=== PATIENT | male | born 1960 | race Caucasian/White ===

== ENCOUNTER → 2023-09-22 13:37 | Outpatient (REF) | payer OTHER, SELFPAY | LOC: DHCBC MAIN 13:37 | PROVIDERS: ATTENDING PHYSICIAN Internal Medicine; FAMILY PHYSICIAN Nurse Practitioner Primary Care | DX: I35.1 Nonrheumatic aortic (valve) insufficiency (principal); I10 Essential (primary) hypertension; I77.810 Thoracic aortic ectasia | CPT/HCPCS: 93306 ==

== ENCOUNTER 2024-07-24 00:30 | Observation (INO) | payer OTHER, SELFPAY ==
[2024-07-23] VITALS (7 sets, daily range): BP systolic 103–133; BP diastolic 78–94; BMI 25.4
[2024-07-23 21:14] LABS: % Basophils 0.2 % (0-2); % Eosinophils 1.6 % (0-6); % Immature Granulocytes 0.3 % (0-0.5); % Lymphocytes 3.5 % (20.5-51.1); % Monocytes 3.8 % (1.7-9.3); % Neutrophils 90.6 % (42.2-75.2); Absolute Eosinophils 0.2 10^3/uL (0-0.7); Absolute Lymphocytes 0.4 10^3/uL (1.2-3.4); Absolute Monocytes 0.5 10^3/uL (0.1-0.6); Absolute Neutrophils 11.2 10^3/uL (1.4-6.5); Hematocrit 47.4 % (39.0-52.0); Hemoglobin 16.2 g/dL (13.0-18.0); Mean Corp Hgb Conc. 34.2 g/dL (33.0-37.0); Mean Corpuscular Hgb 31.3 pg (27.0-31.0); Mean Corpuscular Volume 91.5 fL (80.0-94.0); Nucleated Red Blood Cells % 0 % (-); Platelet Count 263 10^3/uL (130-400); Red Blood Cell Count 5.18 10^6/uL (4.70-6.10); Red Cell Dist. Width 12.4 % (11.5-14.5); White Blood Cell Count 12.4 10^3/uL (4.8-10.8)
[2024-07-23 21:21] LABS: ALT (SGPT) 24 U/L (0-50); AST (SGOT) 24 U/L (17-59); Albumin 4.9 g/dl (3.5-5.0); Alkaline Phosphatase 78 U/L (38-126); Blood Urea Nitrogen 28 mg/dl (9-20); Calcium 9.6 mg/dl (8.4-10.2); Carbon Dioxide 31 mmol/L (22-30); Chloride 102 mmol/L (98-107); Glucose 132 mg/dl (70-99); Potassium 4.9 mmol/L (3.5-5.1); Sodium 141 mmol/L (135-145); Total Bilirubin 1.4 mg/dl (0.2-1.3); Total Protein 7.4 g/dl (6.3-8.2); eGFR > 60.00
[2024-07-23 21:22] LABS: Glucose - Point of Care 127 mg/dl (70-99)
--- NOTE | 2024-07-23 21:28 | ED.GENMED ---
History of Present Illness
General
Chief Complaint: Fainting/Passed Out
Source: patient and spouse
Exam Limitations: none
Time Seen by Provider: 07/23/24 21:23
Nursing documentation reviewed up to this point in time: agreed with
History of Present Illness
History of Present Illness:
Patient presents to ED for evaluation after syncopal episode at home, shortly prior to arrival. Unfortunately, as patient was waiting in the waiting room, sitting in a chair, patient had second syncopal episode in ED. Patient states that while he
was sitting down, he felt lightheaded and felt as though he may pass out. At home, patient had gone into restroom, as he had urge to have a bowel movement. Patient felt lightheaded and passed out, falling onto a tub, hitting the back of his head.
Patient's spouse, who was outside the bathroom, heard noise. When she went inside, patient was inside the bathtub, unconscious, unable to be aroused. Per spouse, patient remained unconscious, while breathing, for approximately 7 minutes until he
woke up. Patient appeared to be groggy upon was aware of where he was and recognized his spouse immediately. Patient immediately had 1 vomiting episode and large bowel movement. Afterwards, he told his that he felt 'much better'. Per
spouse, patient had syncopal episode requiring hospitalization 2 years ago, during which time an evaluation did not reveal obvious etiology behind symptoms. It was attributed to potential vagal episode. Denies recent illness. No recent change in
medications or diet. At the time evaluation ED, patient is complaining of pain in the back of his head, where he made contact with the tub.
Past History
Past History
ED Past Medical History: Other (Head trauma)
ED Past Surgical History: Negative Cardiac
Social History
Tobacco: Non-smoker
Alcohol: Occasional
Drug: None
Personal:
Living: with family
Employment: Employed
Family History
Family History: Other (Noncontributory)
Review of Systems
Review of Systems
Allergies reviewed?: Yes
All Other Systems: ROS reviewed and negative except as documented in HPI and ROS
Constitutional: Reports no symptoms
EENT: Reports no symptoms
Respiratory: Reports no symptoms
Cardiac: Reports syncope
ABD/GI: Reports nausea, vomiting and diarrhea
Musculoskeletal: Reports no symptoms
Skin: Reports no symptoms
Neurological: Reports dizzy
Phy Exam
Physical Exam
Physical Exam:
Physical Exam
General: mild distress, not acutely ill. afebrile. pale appearing
Head: nc/at. eomi
Neck: supple. normal range of motion.
Heart: s1/s2 regular rate and rhythm, no murmur. equal radial pulses.
Lungs: no acute respiratory distress. clear bilaterally
Abdomen: normal bowel sounds. not tender.
Neuro: alert and oriented x 3. no focal neurological deficits
Skin: no rash
Psychiatric: well kept. interactive and cooperative
Extremities: no edema. no calf tenderness.
Course
Orders/Labs/Results
Orders:
Orders
07/23/24 20:45
EKG [Electrocardiogram (*1)] Urgent
Reason for Study: Syncope
07/23/24 20:46
EKG- Treatment ONCE
07/23/24 20:59
Comprehensive Metabolic Panel Urgent
07/23/24 21:00
Complete Blood Count/With Diff Urgent
Troponin I Urgent
07/23/24 21:18
Ondansetron Injectable [Zofran] 4 mg .ROUTE .STK-MED ONE
07/23/24 21:24
[address] Cervical Spine W/o Iv Contr Urgent
Comment:
Reason For Exam: trauma
CT Head W/o Iv Contrast Urgent
Comment:
Reason For Exam: posterior head trauma
Norovirus by PCR Urgent
VERENICE Source: Feces/Stool
Specimen Description:
Stool Culture Urgent
VERENICE Source: Feces/Stool
Specimen Description:
Ondansetron Injectable [Zofran] 4 mg IV NOW STA
07/23/24 21:28
0.9% Sodium Chloride 1000 ml [Nss] 1,000 ml IV BOLUS
07/23/24 23:00
Flush (0.9% Sodium Chloride) [Flush (Nss)] See Dose Instructions IV PER PROTOCOL
07/23/24 23:15
0.9% Sodium Chloride 1000 ml [Nss] 1,000 ml IV 100 mls/hr
07/24/24 00:04
Admit/Transfer Patient As Directed
Co-Sign Provider:
Level of Care: Observation services
Assign to:: Telemetry
Physician / Group: hospitalist
Diagnosis: syncope
Reason for Telemetry: Syncope
Date to Stop Telemetry: 07/26/24
Time to Stop Telemetry: 11:00
PRN Pain Medication Management As Directed
May give lesser potent ordered pain med per pt: Yes
preference::
Protocol:: Medication orders for pain may be administered in a
manner that supports deferring to patient preference
when the pt is:
- Requesting an ordered lesser potent pain medication.
Least to most potent pain medications are defined
as: acetaminophen < NSAID < tramadol < opioids
(morphine, oxycodone, hydromorphone).
- Requesting a lesser dose of the same medication IF
ORDERED.
- Requesting a less intrusive route of administration
if both routes are prescribed by the provider (PO <
IV).
07/24/24 00:05
Code Status As Directed
Resuscitation Status: Full Code
07/24/24 00:48
Acetaminophen [Tylenol] 650 mg PO Q4HPRN PRN
Docusate W/Senna [Senokot-S] 1 tablet PO BIDPRN PRN
Ondansetron Injectable [Zofran] 4 mg IV Q6HPRN PRN
07/24/24 00:48
Echo 2D MMode Color/Doppler Routine
Reason for Study: syncope
Activity As Directed
Activity Level: With Assistance
Orthostatic Vital Signs As Directed
Orthostatic VS Frequency: Daily
Pneumatic Compression Sleeves As Directed
Type: Knee high
Vital Signs As Directed
Frequency: Per unit guidelines
DX Deep Vein Thrombosis Video Routine
07/24/24 Breakfast
Regular
At Your Request: Full Participation
Does patient need a safe tray?: No
07/24/24 08:00
Hydrochlorothiazide [Oretic] 12.5 mg PO DAILY
Lisinopril [Zestril] 30 mg PO DAILY
07/26/24 11:00
DC Protocol for Telemetry ONCE
Abnormal Lab Results
07/23/24 07/23/24 07/23/24
20:59 21:00 21:21
WBC 12.4 H 10^3/uL
(4.8-10.8)
MCH 31.3 H pg
(27.0-31.0)
Absolute Neuts (auto) 11.2 H 10^3/uL
(1.4-6.5)
Absolute Lymphs (auto) 0.4 L 10^3/uL
(1.2-3.4)
Neutrophils % 90.6 H %
(42.2-75.2)
Lymphocytes % 3.5 L %
(20.5-51.1)
Carbon Dioxide 31 H mmol/L
(22-30)
BUN 28 H mg/dl
(9-20)
Glucose 132 H mg/dl
(70-99)
Total Bilirubin 1.4 H mg/dl
(0.2-1.3)
POC Glucose 127 H mg/dl
(70-99)
07/23/24 21:00
07/23/24 20:59
Vital Signs
Initial and Last Documented VS:
Initial Vital Signs
Temp Pulse Resp BP Pulse Ox
98.2 F 92 18 116/84 99
07/23/24 20:50 07/23/24 20:50 07/23/24 20:50 07/23/24 20:50 07/23/24 20:50
Last Documented Vital Signs
Temp Pulse Resp BP Pulse Ox
98.2 F 98 16 136/95 97
07/23/24 20:50 07/24/24 02:45 07/24/24 02:45 07/24/24 02:00 07/24/24 02:45
MDM/Problems Addressed
MDM/Problems Addressed:
History and exam consistent with likely syncopal episode, vasovagal in nature, especially with ongoing viral illness, as noted with vomiting and diarrhea episode, preceding syncope. However, as patient experienced second syncopal episode in short
span, patient will be admitted for further events or treatment, with consideration for potential arrhythmic event as well, along with continue IV hydration.
*EKG
Interpreted by ED Provider?: Yes
EKG Intrepretation Date: 07/23/24
Heart Rate: 85
Rate: normal
[place]: normal axis
Interval: normal interval
*Critical Care Note
Total Time (30-74mins, 75-104mins- exclusive of procedures): Not Applicable
ED Attending Note
-
Portions of this chart may have been created with voice recognition software.� Occasional wrong word or��sound alike� substitutions may have occurred due to the inherent limitations of voice recognition software.
Discharge Plan
Departure
Patient Disposition: Admit
Date of Disposition: 07/23/24
Time of Disposition: 23:12
Admit to: Telemetry
Presentation/result/management discussed w/ accepting MD/DO: Hospitalist
Discharge Problem:
Syncope, Viral illness
Interventions
Interventions:
*Risk Screen - Suicide Last Done: 07/23/24 20:50
*General Assessment Last Done: 07/23/24 20:50
*Neglect/Abuse Screening Last Done: 07/23/24 20:50
*ED COVID-19 Vaccine History Last Done: 07/23/24 20:50
ED- Cardiac Assessment Last Done: 07/23/24 21:46
ED- Neurological Assessment Last Done: 07/23/24 21:46
[2024-07-23 21:29] LABS: Troponin I < 0.012 ng/ml
[2024-07-23] MEDS: NSS 1000 IV ×2 (21:30→23:35)
[2024-07-23] MEDS: ZOFRAN 4 MG IV (21:44)
--- NOTE | 2024-07-23 23:58 | HPS.HSE ---
Family Physician
-
Family Physician: Austen Luo
Chief Complaint
-
Syncopal episode at home
History of Present Illness
This is a 61-year-old male with a past medical history of hypertension and a dilated aortic root who presents to emergency department with 2 syncopal episodes.
Patient reported being in usual state of health up until today. He felt weak and then had some abdominal bloating. He later on developed a diarrheal episode and nausea. While he was sitting on the commode he felt that he was lightheaded and
essentially passed out. Spouse reported that he passed out for a few minutes being unresponsive but breathing and having a normal pulse. EMS was called and patient declined coming to the hospital but later drove himself to the hospital for
evaluation. While in the waiting room he felt nauseous again and had another syncopal episode. No seizure-like activity noted.
In the emergency department he was afebrile, blood pressure was 130/90 with a pulse of 93. ECG showed normal sinus rhythm and no acute ST or T wave changes. Troponin was negative.
CBC was completely normal. BUN/creatinine and electrolytes were all within normal limits. LFTs were unremarkable.
CT of the head and C-spine shows no acute abnormalities.
Medical History
Past Medical History
Past Medical History: Reports HTN
Past Surgical History: Reports Appendectomy
Social History
Tobacco: Non-smoker
Alcohol: Occasional
Drug: None
Personal:
Living: With Family
Employment: Employed
Family History
Family History: Not pertinent
Allergies / Home Medications
Allergies reflects when Allergies were last updated in [facility].
Home Medications with original date entered in [facility]
Allergy/Medication List:
Allergies
Allergy/AdvReac Type Severity Reaction Status Date / Time
latex Allergy blisters Verified 07/19/21 08:36
Home Medications
hydrochlorothiazide 12.5 mg tablet 12.5 mg PO DAILY 07/23/24
lisinopril 30 mg tablet 30 mg PO DAILY 07/23/24
Review of Systems
-
History Source: Patient
Constitutional: Reports No Symptoms
EENT: Reports No Symptoms
Respiratory: Reports No Symptoms
Cardiac: Reports No Symptoms
Abdomen/GI: Reports Vomiting and Diarrhea
: Reports No Symptoms
Musculoskeletal: Reports No Symptoms
Skin: Reports No Symptoms
Neurological: Reports No Symptoms
Endocrine: Reports No Symptoms
Hematologic/Lymphatic: Reports No Symptoms
Psych: Reports No Symptoms
Physical Exam
Vital Signs
Vital Signs
Temp Pulse Resp BP Pulse Ox
98.2 F 90 15 133/94 96
07/23/24 20:50 07/23/24 23:45 07/23/24 23:45 07/23/24 23:30 07/23/24 23:45
Physical Exam
General: Well Developed, Well Nourished, No Apparent Distress and Comfortable
HEENT: NormoCephalic, Anicteric, Moist mucous membranes and Atraumatic
Respiratory: Clear
Cardiac: S1/S2, Regular Rhythm and Other
Breast: Deferred by me
GI: Soft, Non Tender, Non Distended and Normal Bowel Sounds
Rectal: Deferred by Provider
Genito-urinary: Deferred by me
Musculoskeletal: No Clubbing, No Cyanosis and No Edema
Skin: Warm
Neuro: AO x 3
Hematologic/Lymphatic: No Lymphadenopathy
Psych: Calm
Laboratory Results
-
07/23/24 21:00
07/23/24 20:59
Laboratory Results
Total Bilirubin 1.4 mg/dl (0.2-1.3) H 07/23/24 20:59
AST 24 U/L (17-59) 07/23/24 20:59
ALT 24 U/L (0-50) 07/23/24 20:59
Alkaline Phosphatase 78 U/L (38-126) 07/23/24 20:59
Troponin I < 0.012 ng/ml 07/23/24 21:00
Data Reviewed
-
CT Scan: Report Reviewed by me
Medical Tests (Nuc Med, Echo, EKG etc): Image Personally Visualized and interpreted
Lab Data: Labs Reviewed by me
Old Records: Reviewed
Impression/Plan
-
IMPRESSION:
Patient with syncopal episode in the setting of nausea vomiting and diarrhea likely a vasovagal episode. Past medical history of hypertension and a dilated aortic root but otherwise no significant past medical history. Labs were completely within
normal limits. CT of the head and C-spine showed no acute abnormalities. ECG with a normal sinus rhythm with troponin being normal. He is tracing on the telemetry has been normal sinus rhythm in the emergency department.
PLAN:
Syncopal episode - He is generally healthy w/o personal or family history. Presentation suggests vagal stimulation, less likely orthostatic. Cannot rule out arrythmic entirely.
- admit to tele observation
- tele x 12 - 24 hrs
- check echo in am
- orthostatic vital signs
- s/p 1 L NS in ED, continue IV fluids overnight
- continue hctz and lisinopril unless orthostatic.
DVT PPx - SCDs
Code status - full code
[2024-07-24] VITALS (14 sets, daily range): BP systolic 102–144; BP diastolic 73–99; PULSE 102–112; BMI 25.9
[2024-07-24] MEDS: ORETIC 12.5 MG PO (08:13)
[2024-07-24] MEDS: ZESTRIL 30 MG PO (08:13)
--- NOTE | 2024-07-24 09:59 | W.PN.HOSP.TC ---
Today's Communication/Plan
-
Follow up Echo
Discharge
Assessment / Plan
Assessment / Plan
Gen-AAOx3, NAD
HEENT-NC, AT, anicteric, clear oral mm
Neck-supple
CV-reg, no M, +S1/S2
Lungs-clear B/L
Abd-soft, NT, ND
Ext-no edema
Musculoskeletal-no cyanosis, clubbing
Skin-warm and dry
Neuro-grossly non-focal
Psych-calm, cooperative
Acute norovirus gastroenteritis -continue supportive care. Tolerating diet. Continue IV fluids.
Vasovagal syncope - Due to gastroenteritis, volume depletion, etc.
Echo completed, report pending.
Essential hypertension -stable.
Full code
Dispo - anticipate d/c home today if he remains stable pending Echo report.
33 min spent in discharge process.
Anticipated Discharge: Today
Subjective/Interval History
-
Date of Service: July 24, 2024
Patient seen and examined. Feeling much better. Tolerated breakfast. Denies nausea or vomiting currently. Still had diarrhea this morning.
Objective Data
-
Vital Signs:
Vital Signs
Temp Pulse Resp BP Pulse Ox
99.3 F 101 14 102/73 95
07/24/24 08:21 07/24/24 08:15 07/24/24 06:30 07/24/24 08:14 07/24/24 08:14
Review of Systems
-
History Source: Patient
All other systems: Reviewed and negative
--- NOTE | 2024-07-24 10:03 | W.DS.TRANS ---
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
-
Discharge Instructions:
Discharge Diagnosis/Procedures Norovirus gastroenteritis, syncope
Diet Regular
Activity As tolerated
Driving Restrictions As prior to admission
Bathing Restrictions None
Instructions:
Stand-Alone Forms:
Changes to Home Medications: No
Discharge Medications:
DC Medications w/original date entered in [facility]
hydrochlorothiazide 12.5 mg tablet 12.5 mg PO DAILY 07/23/24
lisinopril 30 mg tablet 30 mg PO DAILY 07/23/24
Home Medication Changes
Pending Results: No
[2024-07-24] MEDS: NSS 1000 IV (11:11)
--- NOTE | 2024-07-24 13:13 | CM ---
Case management introduced self and role. Patient lives at home with . Independent. Works. 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 He verbalized understanding and signed. Copy given to Fredo. No needs.
DISCHARGE PLAN: Discharge to home
== END 2024-07-24 14:07 | disposition home or self-care (01) ==
LOC: ED 00:30
PROVIDERS: ADMITTING PHYSICIAN Internal Medicine; ATTENDING PHYSICIAN Hospitalist; EMERGENCY PHYSICIAN Emergency Medicine; FAMILY PHYSICIAN Internal Medicine
DX: A08.11 Acute gastroenteropathy due to Norwalk agent (principal); R55 Syncope and collapse; R42 Dizziness and giddiness; W18.12XA Fall from or off toilet with subsequent striking against object, initial encounter; Y93.89 Activity, other specified; Y92.002 Bathroom of unspecified non-institutional (private) residence as the place of occurrence of the external cause; R11.2 Nausea with vomiting, unspecified; G44.309 Post-traumatic headache, unspecified, not intractable; R19.7 Diarrhea, unspecified; R53.1 Weakness; R14.0 Abdominal distension (gaseous); I10 Essential (primary) hypertension; M47.812 Spondylosis without myelopathy or radiculopathy, cervical region; Z91.040 Latex allergy status
CPT/HCPCS: 70450; 72125; 80053; 82962; 84484; 85025; 87045; 87046; 87427; 87798; 93005; 93306; G0378

== ENCOUNTER 2024-07-26 12:02 | Inpatient (IN) | payer OTHER, SELFPAY ==
[2024-07-25] VITALS (7 sets, daily range): BP systolic 142–162; BP diastolic 96–104; BMI 23.7; BMI 25.0
[2024-07-25 16:10] LABS: % Basophils 0.2 % (0-2); % Eosinophils 0.9 % (0-6); % Immature Granulocytes 0.3 % (0-0.5); % Lymphocytes 6.1 % (20.5-51.1); % Monocytes 5.6 % (1.7-9.3); % Neutrophils 86.9 % (42.2-75.2); Absolute Eosinophils 0.1 10^3/uL (0-0.7); Absolute Lymphocytes 0.6 10^3/uL (1.2-3.4); Absolute Monocytes 0.5 10^3/uL (0.1-0.6); Absolute Neutrophils 8.4 10^3/uL (1.4-6.5); Hematocrit 44.8 % (39.0-52.0); Hemoglobin 15.5 g/dL (13.0-18.0); Mean Corp Hgb Conc. 34.6 g/dL (33.0-37.0); Mean Corpuscular Hgb 31.5 pg (27.0-31.0); Mean Corpuscular Volume 91.1 fL (80.0-94.0); Mean Platelet Volume 9.1 fL (7.4-10.4); Nucleated Red Blood Cells % 0 % (-); Platelet Count 249 10^3/uL (130-400); Red Blood Cell Count 4.92 10^6/uL (4.70-6.10); Red Cell Dist. Width 12.4 % (11.5-14.5); White Blood Cell Count 9.7 10^3/uL (4.8-10.8)
[2024-07-25 16:26] LABS: ALT (SGPT) 194 U/L (0-50); AST (SGOT) 218 U/L (17-59); Albumin 4.6 g/dl (3.5-5.0); Alkaline Phosphatase 58 U/L (38-126); Blood Urea Nitrogen 28 mg/dl (9-20); Calcium 8.7 mg/dl (8.4-10.2); Carbon Dioxide 28 mmol/L (22-30); Chloride 101 mmol/L (98-107); Glucose 131 mg/dl (70-99); Sodium 138 mmol/L (135-145); Total Protein 7.2 g/dl (6.3-8.2); eGFR > 60.00
[2024-07-25 16:27] LABS: Lipase 27 U/L (23-300)
--- NOTE | 2024-07-25 16:59 | EDRN ---
Pt was seen and diagnosed w/ norovirus 2 days ago. Pt has been unable to eat until today had a bit of food and some gatorade and bowel sounds became hyperactive and pt became very bloated. pt at present states pain is a 3/10 but increases and
decreases up to 10/10 and goes from dull to sharp and crampy. Pt has steady constant hiccups while this RN was in room and looks very uncomfortable.
--- NOTE | 2024-07-25 17:21 | ED.GENMED ---
History of Present Illness
General
Chief Complaint: Abdominal Pain
Source: patient
Exam Limitations: none
Time Seen by Provider: 07/25/24 16:32
Nursing documentation reviewed up to this point in time: agreed with
History of Present Illness
History of Present Illness:
Patient to ED with complaint of abd. pain and distention. States he was admitted here [facility] for norovirus. Discharged home yesterday, continued with liquid diet. Today he tried to eat a sandwhich and since then has not been able to pass any
gas. Abdomen has gotten progressively distended, painful. No with hiccups. Brought to ED by spouse for eval.
Past History
Past History
ED Past Medical History: HTN and Other (Head trauma)
ED Past Surgical History: Negative Cardiac
Social History
Tobacco: Non-smoker
Alcohol: Occasional
Drug: None
Personal:
Living: with family
Employment: Employed
Family History
Family History: Other (Noncontributory)
Review of Systems
Review of Systems
Allergies reviewed?: Yes
All Other Systems: ROS reviewed and negative except as documented in HPI and ROS
Constitutional: Reports no symptoms
EENT: Reports no symptoms
Respiratory: Reports no symptoms
Cardiac: Reports no symptoms
ABD/GI: Reports abdominal pain and other (distention)
: Reports no symptoms
Musculoskeletal: Reports no symptoms
Skin: Reports no symptoms
Neurological: Reports no symptoms
Psychiatric: Reports no symptoms
Phy Exam
General Physical Exam
General Presentation: moderate distress
General age: appears stated age
General Skin: warm and dry
General Habitus: normal
Cardiovascular Exam
Cardiovascular Exam: regular rate/rhythm
Pulmonary Exam
Pulmonary Exam: lungs clear and no respiratory distress
Gastrointestinal Exam
Gastrointestinal Exam: no cva tenderness, abnormal bowel sounds (Hypoactive) and distended
Palpation: generalized: Severe tenderness
Musculoskeletal Exam
Musculoskeletal Exam: full ROM
Skin Exam
Skin Exam: normal color and warm/dry
Psychiatric Exam
Psychiatric Exam: normal mood/affect
Course
Orders/Labs/Results
Orders:
Orders
07/25/24 Breakfast
NPO
Allow oral meds: Yes
Allow clear liquids: Sips of Clears
Comment: no red liquid
07/25/24 15:49
Electrocardiogram (*1) Urgent
Reason for Study: Abdominal Pain
EKG- Treatment ONCE
07/25/24 16:01
Complete Blood Count/With Diff Urgent
Comprehensive Metabolic Panel Urgent
Lipase Urgent
07/25/24 16:32
Obstruct Series W/PA Chest [CR Obstruct Series W/pa Chest] Urgent
Comment:
Reason For Exam: abd. pain
07/25/24 17:40
CT Abd/pelvis W Iv Cont Urgent
Comment:
Reason For Exam: abdominal pain and distention, suspected obstructi
07/25/24 17:41
0.9% Sodium Chloride 1000 ml [Nss] 1,000 ml IV BOLUS
07/25/24 18:06
HYDROmorphone [Dilaudid] 0.5 mg IV NOW STA
Ondansetron Injectable [Zofran] 4 mg IV NOW STA
07/25/24 19:24
HYDROmorphone [Dilaudid] 0.5 mg .ROUTE .STK-MED ONE
HYDROmorphone [Dilaudid] 0.5 mg IV NOW STA
07/25/24 20:45
Admit/Transfer Patient As Directed
Co-Sign Provider:
Level of Care: Observation services
Assign to:: Medical/Surgical
Physician / Group: Gopi
Diagnosis: Ileus, Norovirus
PRN Pain Medication Management As Directed
May give lesser potent ordered pain med per pt: Yes
preference::
Protocol:: Medication orders for pain may be administered in a
manner that supports deferring to patient preference
when the pt is:
- Requesting an ordered lesser potent pain medication.
Least to most potent pain medications are defined
as: acetaminophen < NSAID < tramadol < opioids
(morphine, oxycodone, hydromorphone).
- Requesting a lesser dose of the same medication IF
ORDERED.
- Requesting a less intrusive route of administration
if both routes are prescribed by the provider (PO <
IV).
07/25/24 20:46
Code Status As Directed
Resuscitation Status: Full Code
07/25/24 21:42
Acetaminophen [Tylenol] 650 mg PO Q4HPRN PRN
Baclofen [Lioresal] 5 mg PO TIDPRN PRN
HYDROmorphone [Dilaudid] 0.5 mg IV Q4HPRN PRN
Lactated Ringers [Lr] 1,000 ml IV 100 mls/hr
Ondansetron Injectable [Zofran] 4 mg IV Q6HPRN PRN
07/25/24 21:42
Activity As Directed
Activity Level: Ambulate
Bladder Scan As Directed
Follow Bladder Retention/Intermittent Cath Algorithm?: Yes
PRN if no void in __ hours: 6
Frequency: Per Retention Algorithm
If Bladder Scan Result >: 400
then:: Straight cath
I/O [Intake/ Output] As Directed
Frequency: Per unit guidelines
Pneumatic Compression Sleeves As Directed
Type: Knee high
Precautions As Directed
Type of Precautions: Contact
Straight Cath As Directed
Frequency: Per Retention Algorithm
Additional Instructions: straight cath as needed per acute urinary retention algorithm for 24 hrs
Additional Instructions: for bladder scan greater than 400 mL
Vital Signs As Directed
Frequency: Per unit guidelines
Oxygen Therapy [O2 Therapy] [RESP] Routine
Titrate/Wean O2 to maintain O2 sat greater than (%): 94
DX Deep Vein Thrombosis Video Routine
07/25/24 22:00
Flush (0.9% Sodium Chloride) [Flush (Nss)] See Dose Instructions IV PER PROTOCOL
07/25/24 23:14
Consult Notification Routine
Specialty to Notify: Gastroenterology
Date consulting provider notified: 07/26/24
Time consulting provider notified: 07:48
Notified:: Provider
Comment: TT Dr Stanley
GASTROINTESTINAL CONSULT Routine
Consulting Provider: Priti Montgomery
Was physician already notified: No
Reason for consult: Ileus / Norovirus
07/25/24 23:15
Ot Screening Request from Tasha Routine
Pt Screening Request from Tasha Routine
Speech Screening from Tasha Routine
07/26/24 08:00
0.9% Sodium Chloride [Nss (Preservative Free)] 10 ml IV DAILY
Lisinopril [Zestril] 30 mg PO DAILY
Pantoprazole [Protonix IV] 40 mg IV DAILY
07/26/24 09:00
Bisacodyl [Dulcolax] 10 mg RECTAL Q8
07/26/24 09:53
Basic Metabolic Panel IN AM
Complete Blood Count/No Diff IN AM
Magnesium Routine
Comment: ADD ON
07/26/24 11:00
Hepatitis A Antibody, Total Routine
Hepatitis A IgM Antibody Routine
Hepatitis B Core Ab, IgM Routine
Hepatitis B Core Ab, Total Routine
Hepatitis B Surface Antibody Routine
Hepatitis B Surface Antigen Routine
Hepatitis C Antibody Routine
07/27/24 06:00
Complete Blood Count/No Diff IN AM
Comprehensive Metabolic Panel IN AM
Abdomen Xray - 1 View [CR Abdomen - 1 View] IN AM
Comment:
Reason For Exam: eval bowel loops
Abnormal Lab Results
07/25/24 07/26/24
16:01 09:53
RBC 4.65 L 10^6/uL
(4.70-6.10)
MCH 31.5 H pg 31.4 H pg
(27.0-31.0) (27.0-31.0)
Absolute Neuts (auto) 8.4 H 10^3/uL
(1.4-6.5)
Absolute Lymphs (auto) 0.6 L 10^3/uL
(1.2-3.4)
Neutrophils % 86.9 H %
(42.2-75.2)
Lymphocytes % 6.1 L %
(20.5-51.1)
Potassium 3.0 L mmol/L
(3.5-5.1)
BUN 28 H mg/dl 25 H mg/dl
(9-20) (9-20)
Glucose 131 H mg/dl 100 H mg/dl
(70-99) (70-99)
Magnesium 2.4 H mg/dl
(1.6-2.3)
AST 218 H U/L
(17-59)
ALT 194 H U/L
(0-50)
07/26/24 09:53
07/26/24 09:53
Vital Signs
Initial and Last Documented VS:
Initial Vital Signs
Temp Pulse Resp BP Pulse Ox
98.2 F 85 18 162/96 98
07/25/24 15:39 07/25/24 15:39 07/25/24 15:39 07/25/24 15:39 07/25/24 15:39
Last Documented Vital Signs
Temp Pulse Resp BP Pulse Ox
98.3 F 77 19 122/85 99
07/26/24 15:00 07/26/24 15:00 07/26/24 15:00 07/26/24 15:00 07/26/24 15:00
*Radiology
Radiology exam reviewed: radiology read reviewed
*Pulse Oximetry
Patient hypoxic: no
*Critical Care Note
Total Time (30-74mins, 75-104mins- exclusive of procedures): Not Applicable
Update Note
Update Note:
Patient to ED wt complaint of abd. pain and distention which began this afternoon. Diagnosed with norovirus 2 days ago Has not had any further diarrhea or vomiting. Now with nausea,hiccups, dry heaves. Labs reviewed. LFT elevation noted.
reports he had a viral illness approx 10yrs ago whichalso caused temporary elevation. Xray with suspected obstruction. CT obtained: Ileus, no obstruction. IVF, pain meds administered. Afebrile. No vomiting. Case discussed with dr. jonas.
WIll admit to hospitalist service
ED Attending Note
-
Portions of this chart may have been created with voice recognition software.� Occasional wrong word or��sound alike� substitutions may have occurred due to the inherent limitations of voice recognition software.
Discharge Plan
Departure
Patient Disposition: Admit
Date of Disposition: 07/25/24
Time of Disposition: 19:58
Presentation/result/management discussed w/ accepting MD/DO: Hospitalist
Condition: Fair
Covid-19: Not Applicable
Discharge Problem:
Ileus
Interventions
Interventions:
*Risk Screen - Suicide Last Done: 07/25/24 22:59
*General Assessment Last Done: 07/25/24 16:40
*Neglect/Abuse Screening Last Done: 07/25/24 16:40
ED- Fall Risk Assessment Last Done: 07/25/24 16:40
*ED COVID-19 Vaccine History Last Done: 07/25/24 16:40
*Nursing Disposition Last Done: 07/25/24 21:41
DS-Gcguzm-[id number] Assessment Last Done: 07/25/24 16:40
Discharge Date and Time
Discharge Date/Time: 07/25/24 21:44
--- NOTE | 2024-07-25 17:55 | EDRN ---
18Fr NGT placed through L nostril at this time and placed to intermittent suction.
[2024-07-25] MEDS: NSS 1000 IV (18:08)
[2024-07-25] MEDS: DILAUDID 0.5 MG IV ×2 (18:13→19:28)
[2024-07-25] MEDS: ZOFRAN 4 MG IV (18:14)
--- NOTE | 2024-07-25 18:50 | EDRN ---
Pt at this time states pain remains severe. Pt remains w/ bloated and rigidly firm abd and NGT only draining small amounts of GI content at this time. Chinmay Vaz NP informed.
--- NOTE | 2024-07-25 20:52 | HPS.HSE ---
Family Physician
-
Family Physician: Marcelle Chacon
Chief Complaint
-
Abd Distention, N/V
History of Present Illness
Patient is a 64y M with PMH significant for hypertension who presents to ED complaining of abdominal distention and nausea / vomiting today. Patient was recently hospitalized at for symptoms of Norovirus from 07/23 - 07/24. Patient states
that he was feeling much improved at the time of discharge. He continued to have loose stools throughout the day yesterday. When he awoke this AM, he had no further diarrhea. He had no other bowel movement and began to note rapidly progressive
abdominal distention and discomfort. In the afternoon he had an episode of nausea and non-bloody emesis and he returned to the ED for further evaluation and treatment.
Initial x-rays suggested developing obstruction and an NG tube was placed for decompression.
Follow-up CT scan was more consistent with ileus and NG tube was noted to have minimal output. It was removed in the ED.
At the time of my examination, patient complains of intractable hiccoughs and abdominal distention. He denies any pain. He states that he does not feel nauseated at present.
He has had no BM or flatus since arrival here today.
Medical History
Past Medical History
Past Medical History: Reports Other
Additional Past Medical History:
Hypertension
Past Surgical History: Reports Other
Additional Past Surgical History:
Appendectomy
Social History
Tobacco: Non-smoker
Alcohol: None
Drug: None
Family History
Family History: Not pertinent
Allergies / Home Medications
Allergies reflects when Allergies were last updated in [facility].
Home Medications with original date entered in [facility]
Allergy/Medication List:
Allergies
Allergy/AdvReac Type Severity Reaction Status Date / Time
latex Allergy blisters Verified 07/25/24 15:41
Home Medications
hydrochlorothiazide 12.5 mg tablet 12.5 mg PO DAILY 07/23/24
lisinopril 30 mg tablet 30 mg PO DAILY 07/23/24
Review of Systems
-
History Source: Patient
A 12 point ROS was completed and negative except as noted: Yes
Constitutional: Reports Fatigue; Denies Fever or Chills
Respiratory: Denies Cough or Trouble Breathing
Cardiac: Denies Chest Pain or Palpitations
Abdomen/GI: Reports Abdominal Pain, Nausea and Vomiting; Denies Diarrhea or Constipated
: Denies Dysuria or Frequency
Musculoskeletal: Denies Joint Pain or Edema
Neurological: Denies Dizzy or Headache
Psych: Denies Depression or Anxiety
Physical Exam
Vital Signs
Vital Signs
Temp Pulse Resp BP Pulse Ox
98.2 F 88 18 142/98 96
07/25/24 15:39 07/25/24 20:00 07/25/24 20:00 07/25/24 20:00 07/25/24 20:00
Physical Exam
General: Other (64y M in mild distress due to hiccoughs / abdominal distention.)
HEENT: Moist mucous membranes
Respiratory: Clear; No Wheezes, Rales or Rhonchi
Cardiac: S1/S2 and Regular Rhythm
GI: Other (Softly distended. Not tender. Bowel sounds are appreciated. )
Musculoskeletal: No Clubbing, No Cyanosis and No Edema
Neuro: AO x 3
Laboratory Results
-
07/25/24 16:01
07/25/24 16:01
Laboratory Results
Total Bilirubin 1.0 mg/dl (0.2-1.3) 07/25/24 16:01
AST 218 U/L (17-59) H 07/25/24 16:01
ALT 194 U/L (0-50) H 07/25/24 16:01
Alkaline Phosphatase 58 U/L (38-126) 07/25/24 16:01
Lipase 27 U/L (23-300) 07/25/24 16:01
Impression/Plan
-
A/P: Patient is a 64y M with PMH significant for hypertension and recent admission for Norovirus who returns to the ED complaining of abdominal distention and N/V.
Infectious Ileus
Norovirus Enteritis
- Observe overnight for further evaluation and treatment.
- Supportive care including antiemetics, IVFs, etc.
- Would replace NG for decompression if N/V recurs.
- GI evaluation for additional recommendations.
- Follow proper precautions.
Benign Hypertension
- Stable. Hold HCTZ acutely. Continue lisinopril.
DVT Prophylaxis: SCDs
Code Status: Full
--- NOTE | 2024-07-25 21:06 | PTCARENOTE ---
Patient admitted from the ED. Patient ambulated into the room. Patient AAOx3. Patient is able to state needs. Call hernandez within reach. Patient is NPO with sips of clears allowed. Patient complained of hiccups and was given prn Lioresal. Will
continue with current plan.
[2024-07-25] MEDS: LR 1000 IV (22:29)
[2024-07-25] MEDS: LIORESAL 5 MG PO (23:22)
[2024-07-26 07:00] VITALS: BP 131/88
--- NOTE | 2024-07-26 08:13 | CON.GI ---
Addendum entered and electronically signed by Trevor Stanley DO 07/26/24 10:29:
I saw and examined the patient.
The HEAD BUYER TOBACCO's note was reviewed and I agree with the note.
Comment: Mr. Sánchez is a pleasant 64 y.o male with past medical history of HTN and recent infection with Norovirus and syncope with recent admission at (07/23-07/24/24) who re-presented to the ED on 07/25 with worsening abdominal distension and
nausea/vomiting. Had looser stools on 07/24 but without any BM day prior to admission with worsening distension and subsequent nausea with NBNB emesis prompting him to come back to the ED for further re-evaluation. Otherwise, no other fevers/chills
or other constitutional symptoms. He is not on any other anticholinergics or recent opioids/pain medications. HD-stable in ED with labs revealing normal electrolytes, BUN 28 and Plasma Table Operator 1.0 and LFTs with AST 218 and ALT 194. CBC without leukocytosis.
KUB 07/25/24 revealing dilated bowel loops throughout the abdomen suspicious for developing obstruction where an eventual NGT was placed in the ED. CT Abd/pelvis revealed diffusely dilated colon (with cecal diameter of 9.6 cm) and mildly dilated
distal small bowel loops, without transition points identified. Findings suggest colonic ileus with associated small bowel distention without obstruction.
#Colonic Ileus
Etiology of colonic ileus (acute colonic pseudoobstruction) likely secondary to resolving Norovirus infection. Fortunately, he is improving this AM and wishes to go home since he is feeling better. Reports passing significant flatus with eventual
liquid and semi-solid stool suggestive of return of bowel function secondary to resolving infection and without any further nausea/vomiting.
Recommendations:
- Keep NPO for now. If ongoing bowel function later today, may trial CLD later this evening
- Would continue to monitor for additional 24 hrs given cecal diameter (9.6 cm) as seen on recent CT imaging
- Continue IVF with LR and replete electrolytes as needed to maintain K > 4.0 and Mg > 2.0
- Start dulcolax suppositories as below TiD to further promote bowel function
- Reasonable to defer re-placement of NGT given improving symptoms. Low threshold to replace NGT if recurrent nausea/vomiting
- Obtain KUB tomorrow AM to reassess colonic dilation and cecal diameter
- Avoidance of all opioids and anticholinergics while inpatient
- Monitor serial abdominal exams, encourage frequent ambulation, OOB as tolerated while maintaining contact precautions for Norovirus
- Anti-emetics PRN
#Hepatocellular-induced liver injury
Mild transaminases likely from volume depletion with suspected transient hypotension prior to admission resulting in mild ischemic hepatitis.
- Trend LFTs q daily
- Obtain hepatitis serologies for completion, defer full serologic w/u at this time
- Avoid peroids of hypotension, continue IVF as above
Thank you for allowing me to participate in the care of this patient. GI team will continue to follow while inpatient. Please do not hesitate to call for any further questions.
Addendum entered and electronically signed by GLENDA Jacques 07/26/24 08:42:
-Check Abd Xray in am
Original Note:
Consultation
-
Date/Time Consultation Requested: 07/25/24 4752
Date/Time Consultation Performed: 07/26/24 7263
Requesting Provider: Dr. Nguyễn
Performing Provider: Dr. Stanley/GLENDA Schuzl
Reason for Consultation: norovirus/bowel dilatation
Medical History
Chief Complaint / HPI
Chief Complaint: abd distention
History of Present Illness:
64-year-old male with past medical history of hypertension, norovirus, syncopal episode admitted here Monday for norovirus with syncope he was discharged on 07/24/2024 he presents back to emergency room after trying to advance diet with inability
to pass flatus and significant abdominal distention. The patient continues with nausea and vomiting. Asked to evaluate for the same. At the present time the patient still continues with abdominal distention. He had an obstruction series that
showed no acute cardiopulmonary process. Dilated bowel loops throughout the abdomen suspicious for developing obstruction. CT of abdomen and pelvis with IV contrast was obtained that showed diffusely dilated colon and mildly dilated small bowel
loops, without transition point identified. Findings suggest colonic ileus with associated small bowel distention. No martha obstruction. Dilated air and fluid-filled colon throughout measuring up to 9.6 cm in the cecal region. The patient had an
NG tube placed for decompression as he still had vomiting yesterday. He also had minimal output therefore this was removed in the emergency department. The patient's last episode of vomiting was yesterday. He denies any fevers, chills, melena,
hematochezia, hematemesis, dysphagia or odynophagia. No early satiety or unintentional weight loss. He just started to pass a small amount of flatus just now. He just had his first bowel movement which was some liquid with some pieces of solid
stool. Labs pending from this a.m. admission labs include WBC 9.7, hemoglobin 15.5, hematocrit 44.8, platelets 249, sodium 138, potassium 4.0, chloride 101, CO2 28, BUN 20, creatinine 1.0, glucose 131, calcium 8.7, total bilirubin 1.0, AST 218, ALT
194, alk phos 58, lipase 27, albumin 4.6 stool on 07/24/2024 positive for norovirus. Stool cultures negative.
Past Medical History
Past Medical History: HTN and Other (Dilated aortic root)
Past Surgical History: Appendectomy
Social History
Tobacco: Non-Smoker
Alcohol: Occasional (1-2 beers a week)
Drug: None
Personal:
Living: With Family
Family History
Family History: Other (No family history gastrointestinal malignancy or IBD)
Allergies / Home Medications
Allergy/AdvReac Type Severity Reaction Status Date / Time
latex Allergy blisters Verified 07/25/24 15:41
�Medication �Instructions �Recorded
hydrochlorothiazide 12.5 mg tablet 12.5 mg PO DAILY 07/23/24
lisinopril 30 mg tablet 30 mg PO DAILY 07/23/24
Review of Systems
-
All other systems: A 12 pt ROS was Negative except as stated above in HPI
Vital Signs
Temp Pulse Resp BP Pulse Ox
98.6 F 90 20 154/101 98
07/25/24 21:50 07/25/24 21:50 07/25/24 21:50 07/25/24 23:19 07/25/24 21:50
Physical Exam
Exam
General: No Apparent Distress
HEENT: Anicteric
Respiratory: Clear
Cardiac: Regular Rhythm
GI: Non Tender, Normal Bowel Sounds, Distended and Other (Distended abdomen without any tenderness or rebound)
Skin: Warm and Dry
Neuro: AO x 3
Psych: Calm
Results
WBC 9.7 10^3/uL (4.8-10.8) 07/25/24 16:01
Hgb 15.5 g/dL (13.0-18.0) 07/25/24 16:01
Hct 44.8 % (39.0-52.0) 07/25/24 16:01
MCV 91.1 fL (80.0-94.0) 07/25/24 16:01
Plt Count 249 10^3/uL (130-400) 07/25/24 16:01
Absolute Neuts (auto) 8.4 10^3/uL (1.4-6.5) H 07/25/24 16:01
Sodium 138 mmol/L (135-145) 07/25/24 16:01
Potassium 4.0 mmol/L (3.5-5.1) 07/25/24 16:01
Chloride 101 mmol/L (98-107) 07/25/24 16:01
Carbon Dioxide 28 mmol/L (22-30) 07/25/24 16:01
BUN 28 mg/dl (9-20) H 07/25/24 16:01
Creatinine 1.0 mg/dL (0.7-1.3) 07/25/24 16:01
Calcium 8.7 mg/dl (8.4-10.2) 07/25/24 16:01
Total Bilirubin 1.0 mg/dl (0.2-1.3) 07/25/24 16:01
AST 218 U/L (17-59) H 07/25/24 16:01
ALT 194 U/L (0-50) H 07/25/24 16:01
Alkaline Phosphatase 58 U/L (38-126) 07/25/24 16:01
Lipase 27 U/L (23-300) 07/25/24 16:01
Diagnostic Image Results:
CT abdomen and pelvis with IV contrast only:1. Diffusely dilated colon and mildly dilated distal small bowel loops, without transition points identified. Findings suggest colonic ileus with associated small bowel distention. No martha obstruction.
Dilated air and fluid-filled colon throughout measuring up to 9.6 cm in the cecal region.
Obstruction series 07/25/2024:
1. No acute cardiopulmonary process.
2. Dilated bowel loops throughout the abdomen suspicious for developing obstruction.
Prior GI Procedures:
EGD: Never had
Colonoscopy: 02/06/2019 ([facility]): - One 3 mm polyp in the transverse colon, removed with a
jumbo cold forceps. Resected and retrieved.
- The examined portion of the ileum was normal.
- Otherwise normal to terminal ileum.
Assessment / Plan
-
64-year-old male with past medical history of hypertension, norovirus, syncopal episode admitted here Monday for norovirus with syncope he was discharged on 07/24/2024 he presents back to emergency room after trying to advance diet with inability
to pass flatus and significant abdominal distention. The patient continues with nausea and vomiting. Imaging studies with dilated loops of small bowel and colon dilatation with cecum up to 9.6 cm. Continues with abdominal distention. Starting to
pass minimal flatus.
Impression:
Norovirus
Ileus/colonic dilatation (cecum up to 9.6 cm)
Inability to tolerate oral intake, need for IV fluids to maintain hydration
Elevated transaminases-> likely secondary to shock from syncope prior to first admission
Plan:
-Continue IV fluids to support patient's hydration
-Antiemetics as needed
-Await pending labs
-Dulcolax suppository every 8 x 24 hours to stimulate movement from below
-If with nausea and vomiting would reconsider NG tube. Patient aware
-N.p.o., if with continued passing of flatus and bowel movements would consider sips of clears with advancement.
-Continue pantoprazole 40 mg IV daily
-Patient due for repeat colonoscopy in 2025.
-Further recommendations to be forthcoming.
-
-
Thank you for consultation and allowing me to participate in the patient's care. Please call the application support analyst GI physician during the after hours with any questions or concerns.
[2024-07-26] MEDS: LR 1000 IV ×2 (09:52→23:00)
[2024-07-26] MEDS: PROTONIX IV 40 MG IV (09:53)
[2024-07-26] MEDS: ZESTRIL 30 MG PO (09:53)
[2024-07-26] MEDS: DULCOLAX 10 MG RECTAL ×2 (09:54→17:36)
[2024-07-26] MEDS: NSS (PRESERVATIVE FREE) 10 ML IV (09:54)
[2024-07-26 10:07] LABS: Hemoglobin 14.6 g/dL (13.0-18.0); Mean Corp Hgb Conc. 34.8 g/dL (33.0-37.0); Mean Corpuscular Hgb 31.4 pg (27.0-31.0); Mean Corpuscular Volume 90.3 fL (80.0-94.0); Mean Platelet Volume 9.1 fL (7.4-10.4); Platelet Count 237 10^3/uL (130-400); Red Blood Cell Count 4.65 10^6/uL (4.70-6.10); Red Cell Dist. Width 12.3 % (11.5-14.5); White Blood Cell Count 6.9 10^3/uL (4.8-10.8)
[2024-07-26 10:52] LABS: Blood Urea Nitrogen 25 mg/dl (9-20); Calcium 8.5 mg/dl (8.4-10.2); Carbon Dioxide 28 mmol/L (22-30); Chloride 100 mmol/L (98-107); Estimated Creatinine Clearance 87 ml/min; Glucose 100 mg/dl (70-99); Sodium 139 mmol/L (135-145); eGFR > 60.00
[2024-07-26 13:12] LABS: Hepatitis B Surface Antigen Negative (Negative)
[2024-07-26 13:17] LABS: Hepatitis A IgM Antibody Negative (Negative); Hepatitis B Core Ab, IgM Negative (Negative)
[2024-07-26 13:29] LABS: Hepatitis A Antibody, Total Negative (Negative); Hepatitis B Core Ab, Total Negative (Negative); Hepatitis B Surface Antibody Negative; Hepatitis C Antibody Negative (Negative)
[2024-07-26 13:31] LABS: Magnesium 2.4 mg/dl (1.6-2.3)
--- NOTE | 2024-07-26 13:48 | W.PN.HOSP.TC ---
Today's Communication/Plan
-
Replete potassium
Assessment / Plan
Assessment / Plan
Gen-AAOx3, NAD
HEENT-NC, AT, anicteric, clear oral mm
Neck-supple
CV-reg, no M, +S1/S2
Lungs-clear B/L
Abd-soft, NT, mild distention
Ext-no edema
Musculoskeletal-no cyanosis, clubbing
Skin-warm and dry
Neuro-grossly non-focal
Psych-calm, cooperative
Ileus -due to acute gastroenteritis due to norovirus. Clinically improving, passing gas and stool. No obstruction noted on CT. Currently NPO. Continue IV fluids. Appreciate GI input.
Abdominal x-ray in the morning. Bowel regimen per GI. Minimize opiates.
Plan to start clear liquid diet if he has multiple bowel movements this afternoon.
Hypokalemia -due to GI losses from acute gastroenteritis. Continue repletion. Magnesium 2.4.
Acute gastroenteritis due to norovirus -continue supportive care.
Essential hypertension -stable.
Elevated transaminases -unclear if due to hypotension induced ischemia versus other causes. Blood pressures recorded so far have all been fine if not elevated.
Full code
Anticipated Discharge: Within 24 hours
Subjective/Interval History
-
Date of Service: July 26, 2024
Patient seen and examined. Feeling better. No complaints.
Objective Data
-
Labs:
Laboratory Results
07/26/24
09:53
WBC 6.9
Hgb 14.6
Hct 42.0
Plt Count 237
Sodium 139
Potassium 3.0 L
Chloride 100
Carbon Dioxide 28
BUN 25 H
Creatinine 0.9
Glucose 100 H
Calcium 8.5
Vital Signs:
Vital Signs
Temp Pulse Resp BP Pulse Ox
98.2 F 75 20 131/88 99
07/26/24 07:00 07/26/24 07:00 07/26/24 07:00 07/26/24 07:00 07/26/24 07:00
Review of Systems
-
History Source: Patient
All other systems: Reviewed and negative
[2024-07-26] MEDS: KCL 270 MEQ IV (14:08)
[2024-07-26] MEDS: LR IV (14:13)
--- NOTE | 2024-07-26 14:44 | CM ---
central supply manager reviewed patient's chart and met with patient and patient switched to inpatient, patient is on isolation and is unable to sign, IMM placed on chart. Patient states he lives with his spouse in a one story home, patient is independent
with adl's and ambulation, no dme, patient drives.
PCP: Marcelle Chacon
Pharmacy: [facility]
Plan; Home when stable, no needs.
[2024-07-26 15:00] VITALS: BP 122/85
[2024-07-26] MEDS: KCL 20 MEQ PO (21:29)
[2024-07-26 23:11] VITALS: BP 140/73
[2024-07-27] MEDS: DULCOLAX 10 MG RECTAL (00:03)
--- NOTE | 2024-07-27 06:42 | W.PN.GI.CBS2 ---
Today's Communication / Plan
-
Improving symptoms and having return of bowel function with passage of flatus. Await KUB to reassess right-sided colonic dilatation. Rest of care as outlined below.
Assessment / Plan
-
Mr. Sánchez is a pleasant 64 y.o male with past medical history of HTN and recent infection with Norovirus and syncope with recent admission at (07/23-07/24/24) who re-presented to the ED on 07/25 with worsening abdominal distension and
nausea/vomiting. Had looser stools on 07/24 but without any BM day prior to admission with worsening distension and subsequent nausea with NBNB emesis prompting him to come back to the ED for further re-evaluation. Otherwise, no other fevers/chills
or other constitutional symptoms. He is not on any other anticholinergics or recent opioids/pain medications. HD-stable in ED with labs revealing normal electrolytes, BUN 28 and Raised Printer 1.0 and LFTs with AST 218 and ALT 194. CBC without leukocytosis.
KUB 07/25/24 revealing dilated bowel loops throughout the abdomen suspicious for developing obstruction where an eventual NGT was placed in the ED. CT Abd/pelvis revealed diffusely dilated colon (with cecal diameter of 9.6 cm) and mildly dilated
distal small bowel loops, without transition points identified. Findings suggest colonic ileus with associated small bowel distention without obstruction.
#Colonic Ileus 2/2
#Acute Norovirus Gastroenteritis
Etiology of colonic ileus (acute colonic pseudoobstruction) likely secondary to resolving Norovirus infection. Fortunately, improving with passage of flatus with eventual liquid and semi-solid stool suggestive of return of bowel function secondary
to resolving infection and without any further nausea/vomiting since admission. No other chronic opioids or other offending medications.
Recommendations:
- Okay for sips of clears pending KUB
- Follow-up KUB ordered for this AM to reassess colonic dilation and cecal diameter
- Continue IVF to maintain euvolemia and replete electrolytes as needed to promote bowel function
- Replete for goal K > 4.0 and Mg > 2.0
- Continue dulcolax suppositories as below TiD
- No plans for Neostigmine or colonic decompression at this time given improving symptoms
- Avoidance of all opioids and anticholinergics while inpatient
- Monitor serial abdominal exams, encourage frequent ambulation, OOB as tolerated while maintaining contact precautions for Norovirus
- Anti-emetics PRN
#Hepatocellular-induced liver injury
Mild transaminases likely from volume depletion with suspected transient hypotension prior to admission resulting in mild ischemic hepatitis. Hepatitis serologies (-) ; repeat AST/ALT improving with AST 218 -> 46 and ALT 194 -> 122 with nml ALP
- Trend LFTs q daily
- Defer full serologic w/u at this time
- Avoid periods of hypotension, continue IVF as above
GI team will continue to follow while inpatient.
Subjective
Subjective
Date of Service: July 27, 2024
- Acute hepatitis serologies (-) ; repeat AST/ALT improving with AST 218 -> 46 and ALT 194 -> 122 with nml ALP
- Otherwise, no acute events overnight
- Abd KUB ordered for this AM
Feeling better this morning, notes significant improvement since his admission without any abdominal pain and improved distension. Passing flatus throughout the day yesterday and small volume liquid brown stools. No other nausea or vomiting. Feels
as though he may have a BM this AM.
Objective
Data Reviewed
Laboratory Data:
Laboratory Results
Magnesium 2.4 mg/dl (1.6-2.3) H 07/26/24 09:53
Total Bilirubin 1.0 mg/dl (0.2-1.3) 07/25/24 16:01
AST 218 U/L (17-59) H 07/25/24 16:01
ALT 194 U/L (0-50) H 07/25/24 16:01
Alkaline Phosphatase 58 U/L (38-126) 07/25/24 16:01
Lipase 27 U/L (23-300) 07/25/24 16:01
Vital Signs and I&O:
Vital Signs
Temp Pulse Resp BP Pulse Ox
98.1 F 70 20 140/73 100
07/26/24 23:11 07/26/24 23:11 07/26/24 23:11 07/26/24 23:11 07/26/24 23:11
Physical Exam
Physical Exam
HEENT: Anicteric and Moist mucous membranes
Cardiology: Normal Sinus Rhythm
Pulmonary: Other (Normal WOB on room air)
GI: Soft, Distended (Minimal distension), Non Tender and Other (Right sided tympany)
Extremities: No Edema
Neuro: Non Focal
[2024-07-27 07:00] VITALS: BP 125/79
[2024-07-27 07:12] LABS: Hematocrit 36.8 % (39.0-52.0); Hemoglobin 13.1 g/dL (13.0-18.0); Mean Corp Hgb Conc. 35.6 g/dL (33.0-37.0); Mean Corpuscular Hgb 31.6 pg (27.0-31.0); Mean Corpuscular Volume 88.7 fL (80.0-94.0); Mean Platelet Volume 9.1 fL (7.4-10.4); Platelet Count 218 10^3/uL (130-400); Red Blood Cell Count 4.15 10^6/uL (4.70-6.10); Red Cell Dist. Width 12.1 % (11.5-14.5); White Blood Cell Count 6.1 10^3/uL (4.8-10.8)
[2024-07-27 07:44] LABS: ALT (SGPT) 122 U/L (0-50); AST (SGOT) 46 U/L (17-59); Albumin 3.2 g/dl (3.5-5.0); Alkaline Phosphatase 49 U/L (38-126); Blood Urea Nitrogen 23 mg/dl (9-20); Calcium 8.2 mg/dl (8.4-10.2); Carbon Dioxide 29 mmol/L (22-30); Chloride 103 mmol/L (98-107); Estimated Creatinine Clearance 98 ml/min; Glucose 84 mg/dl (70-99); Potassium 3.5 mmol/L (3.5-5.1); Sodium 138 mmol/L (135-145); Total Protein 5.4 g/dl (6.3-8.2); eGFR > 60.00
[2024-07-27] MEDS: ZESTRIL 30 MG PO (09:04)
[2024-07-27] MEDS: KCL 20 MEQ PO ×2 (09:04→20:41)
[2024-07-27] MEDS: PROTONIX IV 40 MG IV (09:05)
[2024-07-27] MEDS: NSS (PRESERVATIVE FREE) 10 ML IV (09:05)
--- NOTE | 2024-07-27 11:15 | W.PN.HOSP.TC ---
Today's Communication/Plan
-
Start clears
Assessment / Plan
Assessment / Plan
Gen-AAOx3, NAD
HEENT-NC, AT, anicteric, clear oral mm
Neck-supple
CV-reg, no M, +S1/S2
Lungs-clear B/L
Abd-soft, NT, mild distention
Ext-no edema
Musculoskeletal-no cyanosis, clubbing
Skin-warm and dry
Neuro-grossly non-focal
Psych-calm, cooperative
Ileus -due to acute gastroenteritis due to norovirus. Clinically improving, passing gas and stool. No obstruction noted on CT. Currently NPO. Continue IV fluids. Appreciate GI input.
Abdominal x-ray today shows improvement. To start clear liquids as per GI. Monitor overnight.
Hypokalemia -due to GI losses from acute gastroenteritis. Potassium improving.
Acute gastroenteritis due to norovirus -continue supportive care.
Essential hypertension -stable.
Elevated transaminases -unclear if due to hypotension induced ischemia versus other causes. Blood pressures recorded so far have all been fine if not elevated. LFTs coming down.
Full code
Anticipated Discharge: Within 24 hours
Subjective/Interval History
-
Date of Service: July 27, 2024
Patient seen and examined. Feeling better. No complaints.
Objective Data
-
Labs:
Laboratory Results
07/27/24
06:46
WBC 6.1
Hgb 13.1
Hct 36.8 L
Plt Count 218
Sodium 138
Potassium 3.5
Chloride 103
Carbon Dioxide 29
BUN 23 H
Creatinine 0.8
Glucose 84
Calcium 8.2 L
Total Bilirubin 1.0
AST 46
ALT 122 H
Alkaline Phosphatase 49
Vital Signs:
Vital Signs
Temp Pulse Resp BP Pulse Ox
98.2 F 75 19 125/79 98
07/27/24 07:00 07/27/24 09:04 07/27/24 07:00 07/27/24 09:04 07/27/24 07:00
Review of Systems
-
History Source: Patient
All other systems: Reviewed and negative
[2024-07-27 15:00] VITALS: BP 131/89
[2024-07-27 23:00] VITALS: BP 127/66
--- NOTE | 2024-07-28 06:46 | W.PN.GI.CBS2 ---
Today's Communication / Plan
-
Tolerated CLD without difficulty with resolution of symptoms and improved dilatation on recent KUB. Okay to d/c from GI standpoint with close outpatient follow-up. GI will s/off, please call back with any questions or concerns.
Assessment / Plan
-
Mr. Sánchez is a pleasant 64 y.o male with past medical history of HTN and recent infection with Norovirus and syncope with recent admission at (07/23-07/24/24) who re-presented to the ED on 07/25 with worsening abdominal distension and
nausea/vomiting. Had looser stools on 07/24 but without any BM day prior to admission with worsening distension and subsequent nausea with NBNB emesis prompting him to come back to the ED for further re-evaluation. Otherwise, no other fevers/chills
or other constitutional symptoms. He is not on any other anticholinergics or recent opioids/pain medications. HD-stable in ED with labs revealing normal electrolytes, BUN 28 and Bar Staff 1.0 and LFTs with AST 218 and ALT 194. CBC without leukocytosis.
KUB 07/25/24 revealing dilated bowel loops throughout the abdomen suspicious for developing obstruction where an eventual NGT was placed in the ED. CT Abd/pelvis revealed diffusely dilated colon (with cecal diameter of 9.6 cm) and mildly dilated
distal small bowel loops, without transition points identified. Findings suggest colonic ileus with associated small bowel distention without obstruction.
Abdomen KUB 07/27/24- Impression: nonobstructive bowel gas pattern which may be sequelae of resolving prior obstruction or ileus
#Colonic Ileus 2/2- RESOLVED
#Acute Norovirus Gastroenteritis
Etiology of colonic ileus (acute colonic pseudoobstruction) likely secondary to resolving Norovirus infection. Fortunately, improving with passage of flatus with eventual liquid and semi-solid stool suggestive of return of bowel function secondary
to resolving infection and without any further nausea/vomiting since admission. No other chronic opioids or other offending medications. Abdomen KUB 07/27/24- Impression: nonobstructive bowel gas pattern which may be sequelae of resolving prior
obstruction or ileus
Recommendations:
- KUB 07/27 with marked resolution of previous right-sided colonic dilatation with resolving non-specific non-obstructive gas pattern
- Tolerated CLD over the past 24 hrs with significant improvement of symptoms
- Advised continuing CLD today and then may advance slowly as tolerated as an outpatient
- Continue dulcolax suppositories PRN
- Avoidance of all opioids and anticholinergics while inpatient
- Encourage frequent ambulation, OOB as tolerated while maintaining contact precautions for Norovirus
- Anti-emetics PRN
- Will coordinate outpatient f/u with me after discharge within the next few weeks. 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
#Hepatocellular-induced liver injury
Mild transaminases likely from volume depletion with suspected transient hypotension prior to admission resulting in mild ischemic hepatitis. Hepatitis serologies (-) ; repeat AST/ALT improving with AST 218 -> 46 and ALT 194 -> 122 with nml ALP
- Trend LFTs q daily, can be repeated as an outpatient
- Defer full serologic w/u at this time particularly if transaminases normalize as an outpatient
- Avoid periods of hypotension, continue IVF as above
From GI standpoint, given improving symptoms can be discharge with close outpatient follow-up. GI team will sign-off. Please call back with any questions or concerns.
Discussed with primary internal medicine team this AM.
Subjective
Subjective
Date of Service: July 28, 2024
- Abdomen KUB 07/27/- Impression: nonobstructive bowel gas pattern which may be sequelae of resolving prior obstruction or ileus
- Started on CLD given marked improvement on KUB without significant apparent cecal dilatation as compared to prior CT imaging
- Otherwise, no acute events overnight
Feeling well this morning without any abdominal pain or discomfort. Tolerated CLD yesterday afternoon and overnight without any worsening distension or nausea/vomiting. Had coffee this AM and continues to pass flatus with small amount of liquid
stools. D/w with patient's , Lashay, yesterday afternoon and again this AM given his ongoing improvement.
Objective
Data Reviewed
Laboratory Data:
Laboratory Results
07/27/24 06:46
07/27/24 06:46
Laboratory Results
Magnesium 2.4 mg/dl (1.6-2.3) H 07/26/24 09:53
Total Bilirubin 1.0 mg/dl (0.2-1.3) 07/27/24 06:46
AST 46 U/L (17-59) 07/27/24 06:46
ALT 122 U/L (0-50) H 07/27/24 06:46
Alkaline Phosphatase 49 U/L (38-126) 07/27/24 06:46
Lipase 27 U/L (23-300) 07/25/24 16:01
Vital Signs and I&O:
Vital Signs
Temp Pulse Resp BP Pulse Ox
98.1 F 70 18 127/66 96
07/27/24 23:00 07/27/24 23:00 07/27/24 23:00 07/27/24 23:00 07/27/24 23:00
I&O
07/26/24 07/27/24 07/28/24
06:59 06:59 06:59
Intake Total 1380 / 1380
Balance 1380 / 1380
Physical Exam
Physical Exam
HEENT: Anicteric and Moist mucous membranes
Cardiology: Normal Sinus Rhythm
Pulmonary: Other (Normal WOB on room air)
GI: Soft, Distended (Minimal distension), Non Tender and Other
Extremities: No Edema
Neuro: Non Focal
[2024-07-28 08:06] VITALS: BP 139/91
[2024-07-28] MEDS: ZESTRIL 30 MG PO (09:00)
[2024-07-28] MEDS: NSS (PRESERVATIVE FREE) 10 ML IV (09:01)
[2024-07-28] MEDS: PROTONIX IV 40 MG IV (09:01)
[2024-07-28] MEDS: KCL 20 MEQ PO (09:01)
--- NOTE | 2024-07-28 10:06 | CM ---
client success manager reviewed patient's chart and met with patient and patient has been cleared for discharge today. Plan is to home no needs, spouse to transport.
Plan; Home no needs.
--- NOTE | 2024-07-28 10:19 | W.PN.HOSP.TC ---
Today's Communication/Plan
-
Discharge
Assessment / Plan
Assessment / Plan
Ileus -due to acute gastroenteritis due to norovirus. Clinically improving, passing gas and stool. No obstruction noted on CT. Currently NPO. Continue IV fluids. Appreciate GI input.
Abdominal x-ray today shows improvement. Tolerating full diet.
Hypokalemia -due to GI losses from acute gastroenteritis. Potassium improving. 7 days of KCl prescribed at discharge
Acute gastroenteritis due to norovirus -continue supportive care.
Essential hypertension -stable. Hold HCTZ at discharge, continue lisinopril
Elevated transaminases -unclear if due to hypotension induced ischemia versus other causes. Blood pressures recorded so far have all been fine if not elevated. LFTs coming down.
Full code
Anticipated Discharge: Today
Subjective/Interval History
-
Date of Service: July 28, 2024
Seen and examined at bedside. No acute events reported overnight. AFVSS this morning
Walking around the room in street close. States his bowel status is regular, wants to go home today. GI evaluated and signed off
No acute complaint
Objective Data
-
Vital Signs:
Vital Signs
Temp Pulse Resp BP Pulse Ox
97.9 F 60 16 139/91 98
07/28/24 08:06 07/28/24 08:06 07/28/24 08:06 07/28/24 08:06 07/28/24 08:06
I&O
07/27/24 07/28/24 07/29/24
06:59 06:59 06:59
Intake Total 1380 / 1380
Balance 1380 / 1380
Review of Systems
-
History Source: Patient
All other systems: Reviewed and negative
Physical Exam
-
General: Well Developed, Well Nourished, No Apparent Distress and Comfortable
HEENT: Normocephalic, Atraumatic, Moist Mucous Membranes and Anicteric
Respiratory: Clear to Auscultation and Non Labored Respirations; Negative Wheezes, Rales or Rhonchi
Cardiac: Regular Rhythm and S1/S2; Negative Murmur, Rub or Gallop
GI: Soft, Nontender, Normal Bowel Sounds and Distended (Mild, improved)
Musculoskeletal: No Clubbing, No Cyanosis and No Edema
Skin: Warm and Dry; Negative Rash
Neuro: AO x 3 and Nonfocal/Grossly Intact
Psych: Calm
Data Reviewed
-
Diagnostic Radiology: Discussed with Physician
Labs: Discussed with Physician (Headliner Installer) and Discussed with Patient
--- NOTE | 2024-07-28 13:27 | W.DCSUMMARY ---
Discharge Summary
Discharge Data
Date of Admission: 07/26/24
Date of Discharge: 07/28/24
-
Pending Results: No
Hospital Course
64-year-old male with hypertension that presented to the hospital with gastroenteritis secondary to norovirus complicated by ileus. Provided with supportive treatment while in the hospital, IV fluids, antiemetics and antidiarrheal medications were
provided. Laboratory studies were monitored, electrolytes repleted as needed. Developed significant abdomen distention with reduced bowel movements. Suspicion for ileus secondary to norovirus. Was evaluated by gastroenterology, treated with
bowel regimen in the hospital with normalization of his bowel status. Abdomen distention improved. Patient felt well for discharge on 07/28/2024. Evaluated by gastroenterology here, will follow-up in office after discharge
Discharge Plan
-
Patient Disposition: Home (Routine Discharge)
Discharge Diagnosis/Procedures: Norovirus
Ileus
Condition: Good
Diet: No restrictions
Activity: As tolerated
Driving Restrictions: No driving for 24 hours
Bathing Restrictions: None
Activity Restrictions/Additional Instructions:
Follow up with your family doctor, should be seen within 1-2 weeks of discharge
Monitor home BP twice daily, record values in notebook, and take readings with you to family doctor visit
Instructions: Viral gastroenteritis in adults
Referrals:
Marcelle Chacon CRNP [Family Provider] -
Trevor Stanley DO [Active] - in four to six weeks (Call to make an appointment with me in the next few weeks)
Additional Discharge Medication Instructions: Stop taking your blood pressure medication, hydrochlorothiazide, until you see your family doctor
Take potassium chloride daily for 7 days
Take zofran as needed for nausea/vomiting
Prescriptions:
New
potassium chloride 20 mEq Tablet,Er Particles/Crystals
20 meq PO DAILY 7 Days Qty: 7 0RF
ondansetron 8 mg tablet,disintegrating
8 mg PO BID PRN (Reason: nausea/vomiting) 5 Days Qty: 10 0RF
Continued
lisinopril 30 mg Tablet
30 mg PO DAILY Qty: 0 0RF
Held
hydrochlorothiazide 12.5 mg Tablet
12.5 mg PO DAILY
Hold Instructions: Until you see your family doctor
Discharge Orders:
Discharge Patient (As Directed); Ordered 07/28/24
Ordered By: Jose Campoverde
Discharge Date and Time
Discharge Date/Time: 07/28/24 10:24
Print Language: AZERI
== END 2024-07-28 10:24 | disposition home or self-care (01) | DRG 389 ==
LOC: 4 WEST ACU 12:02
PROVIDERS: Nurse Practitioner; Student in an Organized Health Care Education/Training Program; ADMITTING PHYSICIAN Hospitalist; ATTENDING PHYSICIAN Internal Medicine; CONSULT PHYSICIAN Internal Medicine; EMERGENCY PHYSICIAN Emergency Medicine; FAMILY PHYSICIAN Nurse Practitioner Primary Care
DX: K56.7 Ileus, unspecified (principal); A08.11 Acute gastroenteropathy due to Norwalk agent; I10 Essential (primary) hypertension; R74.01 Elevation of levels of liver transaminase levels; E87.6 Hypokalemia
CPT/HCPCS: 74018; 74022; 74177; 80048; 80053; 83690; 83735; 85025; 85027; 86704; 86705; 86706; 86708; 86709; 86803; 87340; 93005; 96374; 96375; 96376; 99285; Q9967

== ENCOUNTER 2025-05-10 04:11 | Emergency (ER) | payer OTHER, SELFPAY ==
[2025-05-10 04:13] VITALS: BP 155/105
[2025-05-10 05:41] VITALS: BP 163/100
[2025-05-10 05:51] LABS: Hematocrit 43.3 % (39.0-52.0); Hemoglobin 15.6 g/dL (13.0-18.0); Mean Corp Hgb Conc. 36.0 g/dL (33.0-37.0); Mean Corpuscular Volume 88.4 fL (80.0-94.0); Nucleated Red Blood Cells % 0 % (-); Platelet Count 285 10^3/uL (130-400); Red Cell Dist. Width 11.8 % (11.5-14.5)
[2025-05-10 05:53] VITALS: BMI 24.6
[2025-05-10 06:00] VITALS: BP 163/105
[2025-05-10 06:13] LABS: ALT (SGPT) 27 U/L (0-50); AST (SGOT) 25 U/L (17-59); Albumin 4.8 g/dl (3.5-5.0); Alkaline Phosphatase 76 U/L (38-126); Blood Urea Nitrogen 20 mg/dl (9-20); Calcium 9.4 mg/dl (8.4-10.2); Carbon Dioxide 30 mmol/L (22-30); Chloride 103 mmol/L (98-107); Estimated Creatinine Clearance 101 ml/min; Glucose 110 mg/dl (70-99); Lipase 60 U/L (23-300); Potassium 4.2 mmol/L (3.5-5.1); Sodium 139 mmol/L (135-145); Total Protein 7.3 g/dl (6.3-8.2); eGFR > 60.00
--- NOTE | 2025-05-10 06:15 | ED.GENMED ---
History of Present Illness
General
Chief Complaint: Abdominal Symptoms
Source: patient
Exam Limitations: none
Time Seen by Provider: 05/10/25 06:15
Nursing documentation reviewed up to this point in time: agreed with
History of Present Illness
History of Present Illness:
Note:
CHIEF COMPLAINT(S)
Severe abdominal pain
HISTORY OF PRESENT ILLNESS
The patient is a 64-year-old male who presents to the emergency department with a chief complaint of significant abdominal pain. He reports that the pain began this morning and describes it as severe and persistent. The pain has never occurred
before, except for an episode in May last year, which the patient did not further describe. He has not experienced nausea associated with this current episode. The pain is located in the left upper quadrant, and the patient reports that it
worsens with certain movements, such as leaning forward.
Physical Exam
General: no apparent distress, not acutely ill
Neck: supple. no meningeal signs. normal posterior pharynx
Heart: s1/s2 regular rate and rhythm, no murmur. equal radial
pulses.
HEENT: Pupils equal round reactive to light, EOMI
Lungs: no acute respiratory distress. clear bilaterally
Abdomen: normal bowel sounds. LLQ tender. no CVAT
Neuro: alert and oriented. no focal neurological deficits cranial nerves II through XII intact
Skin: no rash
Psychiatric: well kept. interactive and cooperative
Extremities: no edema. no calf tenderness. negative homans. good distal pulses
PROBLEM LIST
- Acute severe abdominal pain
PLAN
- The attending physician will check the patients labs to further evaluate the source of pain.
DIFFERENTIAL DIAGNOSIS
The Differential Diagnosis includes, in no particular order and is not limited to:
1. Acute pancreatitis
2. Peptic ulcer disease
3. Gastroesophageal reflux disease (GERD)
4. Gastric or duodenal ulcer
5. Cholecystitis
6. Splenic infarct
7. Bowel obstruction
8. Renal colic
9. Perforated viscus
10. Mesenteric ischemia
Note:
CARE-UPDATE
05/10/25 - 08:[address] abd/pelvis indicates enteritis with no evidence of obstruction, abdominal aortic aneurysm, or other acute abnormalities. Continue current treatment plan for enteritis management.
Disposition:
SUMMARY OF ENCOUNTER
The patient, a 64-year-old male, presented to the emergency department with severe abdominal pain in the left upper quadrant, worsened by leaning forward. This pain commenced the same day of the visit. After evaluation, a diagnosis of enteritis was
made, with no indication for antibiotics or admission. The abdominal CT scan indicated enteritis with no other acute findings. The care plan included discharge with instructions to follow up with primary care.
DISPOSITION
Discharge.
ASSESSMENT
The patient was assessed with enteritis based on clinical symptoms and imaging results.
PLAN
The plan is to manage enteritis conservatively and ensure follow-up with primary care for continued monitoring and management as needed.
INDEPENDENT REVIEW OF LABS AND INTERPRETATION OF TESTS
- My independent review of CBC is normal.
- My independent review of CMP is normal.
- My independent CT interpretation is consistent with enteritis and no other acute abnormalities.
PATIENT EDUCATION AND COUNSELING
The patient was advised on the nature of enteritis and the importance of follow-up care. They were also informed about the prescribed medications for managing symptoms.
FOLLOW-UP INSTRUCTIONS
Patient is advised to follow up with their primary care physician to ensure proper management and recovery.
MEDICATION RECONCILIATION
- A prescription for ondansetron (Zofran) was given to manage nausea.
- Fzek-hre-ikutdvq loperamide (Imodium) was recommended to manage symptoms.
MEDICAL DECISION MAKING
1. Number and Complexity of Problems Addressed: Acute severe abdominal pain with a differential diagnosis including enteritis, pancreatitis, peptic ulcer disease, GERD, ulcers, cholecystitis, splenic infarct, bowel obstruction, renal colic,
perforated viscus, and mesenteric ischemia.
2. Data:
- Category 1
- Labs reviewed: CBC, CMP
- Imaging reviewed: CT scan
- Category 2
- My independent interpretation of the CT scan
-Risk:
Consideration of Admission/Observation: Escalation of care including admission/observation was considered given the complexity and risk of the patients presenting complaint and imaging. However, ultimately I feel the patient is safe for outpatient
management with close follow up. Reasoning: Work-up is reassuring, does not reveal any acute life/organ threatening processes, patient�s symptoms well controlled upon reevaluation, vitals are stable, patient agreeable with discharge, reliable for
follow-up.
DIAGNOSIS
- Enteritis (ICD-10: K52.9)
Past History
Past History
ED Past Medical History: HTN and Other (Head trauma)
ED Past Surgical History: Negative Cardiac
Social History
Tobacco: Non-smoker
Alcohol: Occasional
Drug: None
Personal:
Living: with family
Employment: Employed
Family History
Family History: Other (Noncontributory)
Phy Exam
Physical Exam
Physical Exam:
.
Course
Orders/Labs/Results
Orders:
Orders
05/10/25 05:44
Comprehensive Metabolic Panel Urgent
Lipase Urgent
05/10/25 05:45
Complete Blood Count/With Diff Urgent
05/10/25 06:01
CT Abd/pelvis W Iv Cont Urgent
Comment:
Reason For Exam: LLQ abd pain
Abnormal Lab Results
05/10/25 05/10/25
05:44 05:45
MCH 31.8 H pg
(27.0-31.0)
Absolute Lymphs (auto) 0.9 L 10^3/uL
(1.2-3.4)
Neutrophils % 82.4 H %
(42.2-75.2)
Lymphocytes % 12.0 L %
(20.5-51.1)
Glucose 110 H mg/dl
(70-99)
05/10/25 05:45
05/10/25 05:44
Vital Signs
Initial and Last Documented VS:
Initial Vital Signs
Temp Pulse Resp BP Pulse Ox
98.7 F 75 22 155/105 96
05/10/25 04:13 05/10/25 04:13 05/10/25 04:13 05/10/25 04:13 05/10/25 04:13
Last Documented Vital Signs
Temp Pulse Resp BP Pulse Ox
98.7 F 75 22 159/110 97
05/10/25 04:13 05/10/25 04:13 05/10/25 04:13 05/10/25 08:49 05/10/25 08:49
*Pulse Oximetry
SaO2: 98
Oxygen Mode of Delivery: Room air
Patient hypoxic: no
*Critical Care Note
Total Time (30-74mins, 75-104mins- exclusive of procedures): Not Applicable
ED Attending Note
-
Portions of this chart may have been created with voice recognition software.� Occasional wrong word or��sound alike� substitutions may have occurred due to the inherent limitations of voice recognition software.
Discharge Plan
Departure
Patient Disposition: Home (Routine Discharge)
Date of Disposition: 05/10/25
Time of Disposition: 08:46
Patient with high blood pressure during this ER visit?: Yes
Condition: Good
Discharge Problem:
Enteritis
Instructions: Diarrhea in teens and adults, Abdominal Pain, BLOOD PRESSURE
Prescriptions:
New
ondansetron 4 mg tablet,disintegrating
4 mg PO Q8H PRN (Reason: nausea and vomiting) 4 Days Qty: 10 0RF
No Action
hydrochlorothiazide 12.5 mg Tablet
12.5 mg PO DAILY
potassium chloride 20 mEq Tablet,Er Particles/Crystals
20 meq PO DAILY 7 Days Qty: 7 0RF
ondansetron 8 mg tablet,disintegrating
8 mg PO BID PRN (Reason: nausea/vomiting) 5 Days Qty: 10 0RF
lisinopril 30 mg Tablet
30 mg PO DAILY Qty: 0 0RF
Referrals:
Ezequiel David MD [Family Provider, Internal Medicine] - Call in 1-3 days for appt
Interventions
Interventions:
*Risk Screen - Suicide Last Done: 05/10/25 04:21
*General Assessment Last Done: 05/10/25 05:50
*Neglect/Abuse Screening Last Done: 05/10/25 05:50
*ED- Fall Risk Assessment Last Done: 05/10/25 05:50
*ED COVID-19 Vaccine History Last Done: 05/10/25 05:50
*Nursing Disposition Last Done: 05/10/25 08:50
SL-Qljgca-Fwqpoqzkwp Assessment Last Done: 05/10/25 05:51
Discharge Date and Time
Discharge Date/Time: 05/10/25 08:50
Print Language: SURINAMESE
[2025-05-10 08:44] VITALS: BP 160/110
[2025-05-10 08:49] VITALS: BP 159/110
== END 2025-05-10 08:50 | disposition home or self-care (01) ==
LOC: EMR 04:11
PROVIDERS: Emergency Medicine; EMERGENCY PHYSICIAN Emergency Medicine; FAMILY PHYSICIAN Internal Medicine Geriatric Medicine
DX: K52.9 Noninfective gastroenteritis and colitis, unspecified (principal); I10 Essential (primary) hypertension
CPT/HCPCS: 99284; 74177; 80053; 83690; 85025; Q9967

== ENCOUNTER → 2025-07-24 13:32 | Outpatient (REF) | payer OTHER, SELFPAY ==
[2025-07-24 14:12] LABS: Hematocrit 41.6 % (39.0-52.0); Hemoglobin 14.7 g/dL (13.0-18.0); Mean Corp Hgb Conc. 35.3 g/dL (33.0-37.0); Mean Corpuscular Volume 90.4 fL (80.0-94.0); Nucleated Red Blood Cells % 0 % (-); Platelet Count 277 10^3/uL (130-400); Red Cell Dist. Width 12.1 % (11.5-14.5)
[2025-07-24 14:34] LABS: Blood Urea Nitrogen 20 mg/dl (9-20); Calcium 9.7 mg/dl (8.4-10.2); Carbon Dioxide 30 mmol/L (22-30); Chloride 100 mmol/L (98-107); Glucose 105 mg/dl (70-99); Potassium 4.0 mmol/L (3.5-5.1); Sodium 137 mmol/L (135-145); eGFR > 60.00
== END ==
LOC: REG 13:32
PROVIDERS: ATTENDING PHYSICIAN Orthopaedic Surgery
DX: Z01.818 Encounter for other preprocedural examination (principal)
CPT/HCPCS: 36415; 80048; 85025; 93005